=== PATIENT | female | born 1965 | race Caucasian/White ===

== ENCOUNTER 2018-02-21 00:41 | Emergency (ER) | payer OTHER ==
[~2018-02-21] VITALS: Ht 154.9 cm; Wt 52.6 kg
[2018-02-21 02:00] VITALS: BP 108/65
== END 2018-02-21 02:00 | disposition home or self-care (01) ==
LOC: ED 00:41
DX: G47.00 Insomnia, unspecified (principal); F41.8 Other specified anxiety disorders

== ENCOUNTER 2018-02-21 23:54 | Emergency (ER) | payer OTHER ==
[~2018-02-21] VITALS: Ht 162.6 cm; Wt 66.7 kg
[2018-02-21 23:58] VITALS: Ht 162.6 cm; Wt 66.7 kg
[2018-02-22 01:40] VITALS: BP 133/68
== END 2018-02-22 01:40 | disposition home or self-care (01) ==
LOC: ED 23:54
DX: G47.00 Insomnia, unspecified (principal); F41.9 Anxiety disorder, unspecified; F32.9 Major depressive disorder, single episode, unspecified
CPT/HCPCS: J2060

== ENCOUNTER 2018-02-25 20:47 | Emergency (ER) | payer OTHER ==
[~2018-02-25] VITALS: Ht 162.6 cm; Wt 65.3 kg
[2018-02-25 20:56] VITALS: Ht 162.6 cm; Wt 65.3 kg
[2018-02-25 22:10] VITALS: BP 144/68
== END 2018-02-25 22:11 | disposition home or self-care (01) ==
LOC: ED 20:47
DX: G47.00 Insomnia, unspecified (principal); R11.0 Nausea

== ENCOUNTER 2018-10-25 22:47 | Emergency (ER) | payer OTHER ==
[~2018-10-25] VITALS: Ht 152.4 cm; Wt 52.2 kg
[2018-10-25 22:53] VITALS: Ht 152.4 cm; Wt 52.2 kg
[2018-10-25 23:21] VITALS: BP 156/82
== END 2018-10-25 23:21 | disposition home or self-care (01) ==
LOC: ED 22:47
DX: G47.00 Insomnia, unspecified (principal); R25.1 Tremor, unspecified; F32.9 Major depressive disorder, single episode, unspecified; F41.9 Anxiety disorder, unspecified

== ENCOUNTER 2019-06-17 20:56 | Emergency (ER) | payer OTHER ==
[~2019-06-17] VITALS: Ht 152.4 cm; Wt 51.7 kg
[2019-06-17 21:04] VITALS: Ht 152.4 cm; Wt 51.7 kg
[2019-06-18] VITALS: BP 138/79
== END 2019-06-18 | disposition home or self-care (01) ==
LOC: ED 20:56
DX: G47.00 Insomnia, unspecified (principal)

== ENCOUNTER 2020-04-24 23:26 | Emergency (ER) | payer OTHER ==
[~2020-04-24] VITALS: Ht 152.4 cm; Wt 51.3 kg
[2020-04-24 23:31] VITALS: Ht 152.4 cm; Wt 51.3 kg
[2020-04-25 02:58] VITALS: BP 141/59
== END 2020-04-25 02:58 | disposition home or self-care (01) ==
LOC: ED 23:26
DX: U07.1 COVID-19 (principal)
CPT/HCPCS: J7030; Q0092; U0003-CS

== ENCOUNTER 2020-04-26 04:24 | Emergency (ER) | payer OTHER, SELFPAY ==
[~2020-04-26] VITALS: Ht 152.4 cm; Wt 50.8 kg
[2020-04-26 04:34] VITALS: Ht 152.4 cm; Wt 50.8 kg
[2020-04-26 05:00] VITALS: BP 135/81
== END 2020-04-26 05:00 | disposition home or self-care (01) ==
LOC: ED 04:24
DX: R50.9 Fever, unspecified (principal); R19.7 Diarrhea, unspecified

== ENCOUNTER 2020-04-28 20:56 | Emergency (ER) | payer OTHER, SELFPAY ==
[~2020-04-28] VITALS: Ht 152.4 cm; Wt 50.8 kg
[2020-04-28 22:06] VITALS: Ht 152.4 cm; Wt 50.8 kg
[2020-04-28 22:35] LABS: BASOPHIL % 0.5 % (0-2); PLATELET COUNT 230 x10^3mcL (130-400)
[2020-04-28 22:49] LABS: CALCIUM 8.5 mg/dL (8.5-10.1); CARBON DIOXIDE 27.5 mmol/L (21-32); CHLORIDE SERUM 104 mmol/L (98-107); CREATININE SERUM 0.7 mg/dL (0.6-1.0); GFR1 > 60 mL/min; GLUCOSE SERUM 113 mg/dL (74-106); POTASSIUM SERUM 3.7 mmol/L (3.5-5.1); SODIUM SERUM 140 mmol/L (136-145)
[2020-04-28 22:54] LABS: ALBUMIN 3.9 g/dL (3.4-5.0); ALKALINE PHOSPHATASE 72 U/L (46-116); ALT/SGPT 24 U/L (14-59); AST/SGOT 17 U/L (15-37); BILIRUBIN TOTAL 0.16 mg/dL (0.20-1.00); TOTAL PROTEIN, SERUM 7.5 g/dL (6.4-8.2)
[2020-04-28 23:37] LABS: microscopic required? NO
[2020-04-29 00:24] LABS: urine erythrocyte NEGATIVE (NEGATIVE)
[2020-04-29 00:49] VITALS: BP 146/69
== END 2020-04-29 00:49 | disposition home or self-care (01) ==
LOC: ED 20:56
PROVIDERS: Emergency Medicine
DX: E86.0 Dehydration (principal); R53.1 Weakness; U07.1 COVID-19

== ENCOUNTER 2020-11-10 02:08 | Emergency (ER) | payer OTHER ==
[~2020-11-10] VITALS: Ht 152.4 cm; Wt 53.5 kg
[2020-11-10 02:17] VITALS: Ht 152.4 cm; Wt 53.5 kg
[2020-11-10 04:03] VITALS: BP 155/68
== END 2020-11-10 04:03 | disposition home or self-care (01) ==
LOC: ED 02:08
DX: R11.2 Nausea with vomiting, unspecified (principal); M79.10 Myalgia, unspecified site; Z20.828 Contact with and (suspected) exposure to other viral communicable diseases
CPT/HCPCS: Q0162; U0003